=== PATIENT | female | born 1965 | race Caucasian/White ===

== ENCOUNTER 2020-11-16 22:39 | Emergency (ER) | payer OTHER ==
[2020-11-16 22:46] VITALS: BP 152/97; PULSE 90; TEMP 98; BMI 27.6
[2020-11-16] MEDS ORDERED: valACYclovir HCL 1000 MG TABLET PO ONE (23:09)
[2020-11-16] MEDS ORDERED: valACYclovir HCL 500 MG TABLET (FP) ONE (23:10)
== END 2020-11-16 23:15 | disposition home or self-care (01) ==
LOC: FER 22:39
DX: B02.9 Zoster without complications (principal)
CPT/HCPCS: 99283-25

== ENCOUNTER 2022-09-24 07:42 | Emergency (ER) | payer OTHER ==
[2022-09-24 08:30] VITALS: BMI 32.5
[2022-09-24 09:39] VITALS: TEMP 98.3
[2022-09-24 09:58] LABS: BASO % 0.5 % (0-2.0); EOS % 2.1 % (0-4.5); HEMATOCRIT 42.5 % (32.4-45.2); HEMOGLOBIN 13.8 GM/dL (10.7-15.3); LYMPH % 44.9 % (8-40); MCH 30.6 pg (25.7-33.7); MCHC 32.4 g/dl (32.0-36.0); MEAN CELL VOLUME 94.5 fl (80-96); MEAN PLT VOLUME 7.9 fl (7.5-11.1); MONO % 5.7 % (3.8-10.2); NEUT % 46.8 % (42.8-82.8); PLATELET COUNT 240 10^3/uL (134-434); RDW 13.5 % (11.6-15.6); WHITE BLOOD COUNT 6.6 K/mm3 (4.0-10.0)
[2022-09-24 10:01] LABS: POTASSIUM 4.2 mmol/L (3.5-5.1)
[2022-09-24 10:02] LABS: CALCIUM 8.3 mg/dL (8.5-10.1)
[2022-09-24 10:03] LABS: ALBUMIN 3.7 g/dl (3.4-5.0); BLOOD UREA NITROGEN 13.4 mg/dL (7-18); MAGNESIUM 2.8 mg/dL (1.8-2.4)
[2022-09-24 10:06] LABS: CREATININE 0.7 mg/dL (0.55-1.3)
[2022-09-24 10:07] LABS: BILIRUBIN,TOTAL 0.3 mg/dL (0.2-1)
[2022-09-24 10:08] LABS: TOT PROT 6.9 g/dl (6.4-8.2)
[2022-09-24 10:55] LABS: EPI CELLS >36 /uL (0-25.1); HYALINE CASTS 0 /uL (0-3.1); PH,URINE 5.5 (5.0-8.0); URINE APPEARANCE CLOUDY; URINE BACTERIA 1546 /uL (0-1359); URINE BILIRUBIN NEGATIVE (NEGATIVE); URINE COLOR YELLOW; URINE GLUCOSE (UA) NEGATIVE (NEGATIVE); URINE KETONE NEGATIVE (NEGATIVE); URINE LEUK ESTERASE 3+ (NEGATIVE); URINE NITRITE NEGATIVE (NEGATIVE); URINE PROTEIN NEGATIVE (NEGATIVE); URINE RBC 12 /uL (0-23.9); URINE UROBILINOGEN 0.2 mg/dL (0.2-1.0); URINE WBC 22 /uL (0-25.8)
[2022-09-24 11:10] LABS: METHADONE, UR NEGATIVE (NEGATIVE); URINE BARBITURATES NEGATIVE (NEGATIVE)
[2022-09-24 11:11] LABS: PHENCYCLIDINE,URINE NEGATIVE (NEGATIVE)
[2022-09-24 11:13] LABS: OPIATES, URI NEGATIVE (NEGATIVE)
[2022-09-24 11:26] LABS: COCAINE, UR NEGATIVE (NEGATIVE); URINE AMPHETAMINES NEGATIVE (NEGATIVE); URINE BENZODIAZEPINES POSITIVE (NEGATIVE)
[2022-09-24] MEDS ORDERED: KETOROLAC TROMETHAMINE 30 MG/1 ML VIAL IVPUSH ONE (11:59)
[2022-09-24] MEDS ORDERED: KETOROLAC TROMETHAMINE 30 MG/1 ML VIAL ONE (12:11)
[2022-09-24 12:56] VITALS: RESP 18
[2022-09-24 13:46] VITALS: BP 127/82; PULSE 110
== END 2022-09-24 13:52 | disposition home or self-care (01) ==
LOC: JER 07:42
PROC: 3E0333Z Introduction of Anti-inflammatory into Peripheral Vein, Percutaneous Approach (ICD-10-PCS; principal; 2022-09-24)
DX: S93.401A Sprain of unspecified ligament of right ankle, initial encounter (principal); M25.571 Pain in right ankle and joints of right foot; N39.0 Urinary tract infection, site not specified; F10.929 Alcohol use, unspecified with intoxication, unspecified; W01.198A Fall on same level from slipping, tripping and stumbling with subsequent striking against other object, initial encounter; X50.1XXA Overexertion from prolonged static or awkward postures, initial encounter; Y93.G3 Activity, cooking and baking
CPT/HCPCS: 36415; 70450-TC; 71045-TC-FY; 72125-TC; 72170-TC-FY; 73521-TC-FY; 73610-TC-RT-FY; 73630-TC-RT-FY; 80053; 80307; 81003; 83735; 85025; 87086; 99285-25

== ENCOUNTER 2024-01-13 22:55 | Emergency (ER) | payer OTHER ==
[2024-01-13 23:19] VITALS: TEMP 98.6; BMI 26.5
[2024-01-14 01:04] LABS: BASO % 0.6 % (0-2.0); EOS % 0.8 % (0-4.5); HEMATOCRIT 41.8 % (32.4-45.2); HEMOGLOBIN 13.8 GM/dL (10.7-15.3); MCH 30.9 pg (25.7-33.7); MCHC 33.1 g/dl (32.0-36.0); MEAN CELL VOLUME 93.5 fl (80-96); MEAN PLT VOLUME 7.4 fl (7.5-11.1); MONO % 8.8 % (3.8-10.2); NEUT % 52.8 % (42.8-82.8); PLATELET COUNT 275 10^3/uL (134-434); RBC 4.47 M/mm3 (3.60-5.2); RDW 13.2 % (11.6-15.6); WHITE BLOOD COUNT 6.4 K/mm3 (4.0-10.0)
[2024-01-14 01:24] LABS: POTASSIUM 3.7 mmol/L (3.5-5.1)
[2024-01-14 01:26] LABS: ALBUMIN 4.7 g/dl (3.4-5.0); CALCIUM 9.4 mg/dL (8.5-10.1)
[2024-01-14 01:27] LABS: BLOOD UREA NITROGEN 12.5 mg/dL (7-18)
[2024-01-14 01:30] LABS: CREATININE 0.7 mg/dL (0.55-1.3)
[2024-01-14 01:31] LABS: BILIRUBIN,TOTAL 0.6 mg/dL (0.2-1); TOT PROT 7.5 g/dl (6.4-8.2)
[2024-01-14] MEDS ORDERED: HALOPERIDOL LACTATE 5 MG/ML ONE (03:50)
[2024-01-14] MEDS: HALOPERIDOL LACTATE 5 MG/ML IM ONE ×2 (03:55→06:30)
[2024-01-14] MEDS ORDERED: hydrOXYzine HCL 50 MG/ML VIAL IM ONE (04:41)
[2024-01-14] MEDS: hydrOXYzine HCL 100 MG/2 ML VIAL IM ONE (04:49)
[2024-01-14 09:45] VITALS: BP 114/73; PULSE 89; RESP 20
== END 2024-01-14 14:14 | disposition home or self-care (01) ==
LOC: JER 22:55
PROC: 3E033GC Introduction of Other Therapeutic Substance into Peripheral Vein, Percutaneous Approach (ICD-10-PCS; principal; 2024-01-14)
PROC: 3E023GC Introduction of Other Therapeutic Substance into Muscle, Percutaneous Approach (ICD-10-PCS; 2024-01-14)
PROC: 3E023GC Introduction of Other Therapeutic Substance into Muscle, Percutaneous Approach (ICD-10-PCS; 2024-01-14)
PROC: 3E023GC Introduction of Other Therapeutic Substance into Muscle, Percutaneous Approach (ICD-10-PCS; 2024-01-14)
DX: F41.9 Anxiety disorder, unspecified (principal); R91.1 Solitary pulmonary nodule; R07.89 Other chest pain; R00.2 Palpitations
CPT/HCPCS: 36415; 71046-TC-FY; 80053; 84443; 84481; 84484; 85025; 93005; 93010; 99285-25